=== PATIENT | male | born 1980 | race Caucasian/White ===

== ENCOUNTER → 2016-11-14 | Outpatient (REF) | payer OTHER ==
[~2016-11-14] MED LIST: BACL10TA2 PO; IBUP-1022 PO; SOMA350T PO; TYLE325T5 PO
== END ==
LOC: M SFHCLERA 10:53
PROVIDERS: ATTEND Family Medicine
DX: R12 Heartburn (principal)

== ENCOUNTER 2016-12-04 13:11 | Emergency (ER) | payer OTHER ==
[~2016-12-04] VITALS: Ht 180.3 cm; Wt 84.1 kg
[2016-12-04 13:12] VITALS: BP 127/82
[2016-12-04] MEDS ORDERED: BACL10TA2 PO (13:19)
[2016-12-04] MEDS ORDERED: TYLE325T5 PO (13:19)
[2016-12-04] MEDS ORDERED: SOMA350T PO (13:40)
[2016-12-04] MEDS ORDERED: IBUP-1022 PO (13:40)
[2016-12-04] MEDS ORDERED: KETOROLAC 60 MG/2 ML VIAL (J1885) IM ONE (13:45)
[2016-12-04] MEDS ORDERED: KETOROLAC 30 MG/ML VIAL (J1885) As Ordered ONE (13:55)
== END 2016-12-04 14:28 | disposition home or self-care (01) ==
LOC: M ED 13:11
DX: M54.5 Low back pain (principal); Z79.899 Other long term (current) drug therapy; Z88.8 Allergy status to other drugs, medicaments and biological substances
CPT/HCPCS: 96372; 99282; J1885; J3360

== ENCOUNTER → 2019-07-07 | Outpatient (CLI) | payer BC ==
--- NOTE | 2019-07-08 03:29 | REP ---
Clinical: Shortness of breath . Comparison: 10/03/2006 Technique: PA and lateral. Findings: The mediastinum and cardiac silhouette are normal. The lung leon are clear and without acute consolidation, effusion, or pneumothorax. The skeletal structures are intact and normal. Impression: 1. No acute cardiopulmonary process. Electronically Signed by Noe Chinchilla MD 07/08/2019 03:20 A
== END ==
LOC: M WUC 08:55
PROVIDERS: ATTEND Physician Assistant
DX: R06.02 Shortness of breath (principal)

== ENCOUNTER 2020-07-30 19:19 | Emergency (ER) | payer BC ==
[~2020-07-30] VITALS: Ht 180.3 cm; Wt 101.2 kg
[2020-07-30] MEDS ORDERED: MONT10TA10 (19:32)
[2020-07-30] MEDS ORDERED: ALBU8.5H (19:32)
[2020-07-30] MEDS ORDERED: ONDANSETRON 4MG/2ML VIAL IV ONE (19:40)
[2020-07-30] MEDS: MORPHINE 4 MG/ML 1ML VIAL/SYRINGE (J2270) IV PRN ×2 (19:41→21:09)
--- NOTE | 2020-07-30 20:36 | REPVR ---
PROCEDURE INFORMATION: Exam: XR Left Elbow Exam date and time: 07/30/2020 7:58 PM Age: 40 years old Clinical indication: Pain; Elbow; Left; Additional info: Trauma TECHNIQUE: Imaging protocol: XR Left elbow. Views: 3 or more views. COMPARISON: No relevant prior studies available. FINDINGS: Bones/joints: Acute fracture of the distal humeral condyles Soft tissues: Normal. IMPRESSION: Acute fracture of the distal humeral condyle. Electronically signed by: Jose Zuniga On 07/30/2020 20:35:55 PM
--- NOTE | 2020-07-30 20:43 | REPVR ---
PROCEDURE INFORMATION: Exam: CT Left Upper Extremity Without Contrast, Elbow Exam date and time: 07/30/2020 8:06 PM Age: 40 years old Clinical indication: Injury or trauma; Fall; Blunt trauma (contusions or hematomas); Elbow; Left; Additional info: Trauma, request of Dr. San TECHNIQUE: Imaging protocol: CT of the Left upper extremity without contrast was performed. Exam focused on the elbow. Radiation optimization: All CT scans at this facility use at least one of these dose optimization techniques: automated exposure control; mA and/or kV adjustment per patient size (includes targeted exams where dose is matched to clinical indication); or iterative reconstruction. COMPARISON: CR Elbow, complete LEFT 07/30/2020 7:40 PM FINDINGS: Bones/joints: Acute comminuted fracture involving the medial epicondyle extending into the trochlea, capitellum as well as the lateral epicondyle. Soft tissues: Normal. IMPRESSION: Acute comminuted fracture involving the medial epicondyle extending into the trochlea, capitellum as well as the lateral epicondyle. Electronically signed by: Jose Zuniga On 07/30/2020 20:42:55 PM
[2020-07-30] MEDS ORDERED: NS 1,000 ML IV SCH (21:00)
[2020-07-30 21:46] LABS: RSV AMPLIFICATION NEGATIVE (NEGATIVE)
[2020-07-30] MEDS ORDERED: MORPHINE 4 MG/ML 1ML VIAL/SYRINGE (J2270) IV ONE (21:55)
[2020-07-30 22:33] VITALS: BP 128/83
== END 2020-07-30 22:38 | disposition short-term general hospital (02) ==
LOC: M ED 19:19
DX: S42.442A Displaced fracture (avulsion) of medial epicondyle of left humerus, initial encounter for closed fracture (principal); S42.432A Displaced fracture (avulsion) of lateral epicondyle of left humerus, initial encounter for closed fracture; S42.462A Displaced fracture of medial condyle of left humerus, initial encounter for closed fracture; S42.452A Displaced fracture of lateral condyle of left humerus, initial encounter for closed fracture; W01.10XA Fall on same level from slipping, tripping and stumbling with subsequent striking against unspecified object, initial encounter; Y92.009 Unspecified place in unspecified non-institutional (private) residence as the place of occurrence of the external cause; Y93.9 Activity, unspecified; Y99.9 Unspecified external cause status; J45.909 Unspecified asthma, uncomplicated; Z91.89 Other specified personal risk factors, not elsewhere classified
CPT/HCPCS: 73080; 73200; 87631; 96374; 96375; 96376; 99285; J2270; J2405